=== PATIENT | male | born 1965 | race Caucasian/White ===

== ENCOUNTER 2018-06-12 21:19 | Emergency (ER) | payer SELFPAY ==
[~2018-06-12] VITALS: Ht 193 cm; Wt 90.9 kg
[2018-06-12 23:06] VITALS: BP 129/89
[2018-06-12 23:16] LABS: BASOPHILS % (AUTO) 0.8 % (0.0-2.0); EOSINOPHILS % (AUTO) 2.5 % (1.0-6.0); HEMATOCRIT 40.1 % (41-53); HEMOGLOBIN 13.6 g/dL (13.5-17.5); LYMPHOCYTES # (AUTO) 1.4 K/uL (1.0-4.8); MEAN CORPUSCULAR HEMOGLOBIN 30.3 pg (26.0-34.0); MEAN CORPUSCULAR HGB CONC 33.9 G/dL (31.0-37.0); MEAN CORPUSCULAR VOLUME 90 fL (80-100); MONOCYTES # (AUTO) 0.5 K/uL (0.1-1.0); MONOCYTES % (AUTO) 7.4 % (2.0-9.0); NEUTROPHILS # (AUTO) 5.1 K/uL (1.8-7.7); NEUTROPHILS % (AUTO) 70.3 % (40.0-70.0); PLATELET COUNT (AUTO) 210 K/uL (150-450); RED BLOOD CELL COUNT(AUTO) 4.48 MIL/uL (4.50-5.90); RED CELL DISTRIBUTION WIDTH 14.5 % (11.5-14.5)
[2018-06-12 23:18] LABS: ANION GAP 11 mmol/L (8-16); CALCIUM, TOTAL 9.8 mg/dL (8.8-10.5); CARBON DIOXIDE 27 mmol/L (22-29); CHLORIDE 103 mmol/L (98-107); CREATININE 1.09 mg/dL (0.60-1.30); GLOMERULAR FILTR. RATE CALC > 60 mL/min (>60); GLUCOSE,RANDOM 99 mg/dL (70-110); POTASSIUM 3.7 mmol/L (3.5-5.1); SODIUM SERUM 141 mmol/L (136-145); UREA NITROGEN, BLOOD 14 mg/dL (7-18)
[2018-06-12 23:24] LABS: ALANINE AMINOTRANSFERASE 82 U/L (12-78); ALBUMIN 4.3 g/dL (3.4-5.0); ALKALINE PHOSPHATASE 59 U/L (46-116); ASPARTATE AMINOTRANSFERASE 63 U/L (15-37); TOTAL PROTEIN, SERUM 8.9 g/dL (6.4-8.2)
[2018-06-12 23:47] LABS: AMPHET/METH SCREEN,URINE POSITIVE (NEGATIVE); BARBITURATE SCREEN, URINE NEGATIVE (NEGATIVE); BENZODIAZEPINES SCREEN,URINE POSITIVE (NEGATIVE); CANNABINOID SCREEN,URINE NEGATIVE (NEGATIVE); COCAINE SCREEN,URINE NEGATIVE (NEGATIVE); METHADONE SCREEN, URINE NEGATIVE (NEGATIVE); OPIATE SCREEN,URINE NEGATIVE (NEGATIVE)
[2018-06-12 23:48] LABS: PHENCYCLIDINE SCREEN,URINE NEGATIVE (NEGATIVE)
[2018-06-13] MEDS ORDERED: LORazepam 1 MG TABLET PO ONE (00:15)
== END 2018-06-13 00:42 | disposition home or self-care (01) ==
LOC: EMS 21:20
DX: F15.10 Other stimulant abuse, uncomplicated (principal); R44.0 Auditory hallucinations
CPT/HCPCS: 36415; 80053; 80307; 85025; 99284; G0480

== ENCOUNTER 2018-06-14 20:59 | Inpatient (IN) | payer SELFPAY ==
[~2018-06-14] VITALS: Ht 182.9 cm; Wt 90.3 kg
[2018-06-14] MEDS ORDERED: HALOPERIDOL 5 MG TABLET PO PRN (22:00)
[2018-06-14] MEDS ORDERED: ZOLPIDEM TARTRATE 10 MG TABLET PO PRN (22:00)
[2018-06-14 23:05] VITALS: BP 124/58
[2018-06-15] MEDS: LORazepam 2 MG TABLET PO PRN ×2 (00:27→08:42)
[2018-06-15 00:55] VITALS: BP 109/71
[2018-06-15 07:43] LABS: BASOPHILS % (AUTO) 0.6 % (0.0-2.0); EOSINOPHILS % (AUTO) 5.8 % (1.0-6.0); HEMATOCRIT 38.1 % (41-53); HEMOGLOBIN 12.7 g/dL (13.5-17.5); LYMPHOCYTES # (AUTO) 1.6 K/uL (1.0-4.8); LYMPHOCYTES % (AUTO) 38.1 % (22.0-44.0); MEAN CORPUSCULAR HEMOGLOBIN 30.5 pg (26.0-34.0); MEAN CORPUSCULAR HGB CONC 33.4 G/dL (31.0-37.0); MEAN CORPUSCULAR VOLUME 91 fL (80-100); MONOCYTES # (AUTO) 0.4 K/uL (0.1-1.0); MONOCYTES % (AUTO) 8.5 % (2.0-9.0); PLATELET COUNT (AUTO) 190 K/uL (150-450); RED BLOOD CELL COUNT(AUTO) 4.18 MIL/uL (4.50-5.90); RED CELL DISTRIBUTION WIDTH 14.4 % (11.5-14.5)
[2018-06-15 08:01] VITALS: BP 124/79
[2018-06-15 08:02] LABS: HEMOGLOBIN A1C 5.5 % (4.5-6.2)
[2018-06-15 08:12] LABS: AMPHET/METH SCREEN,URINE POSITIVE (NEGATIVE); BARBITURATE SCREEN, URINE NEGATIVE (NEGATIVE); BENZODIAZEPINES SCREEN,URINE NEGATIVE (NEGATIVE); CANNABINOID SCREEN,URINE NEGATIVE (NEGATIVE); COCAINE SCREEN,URINE NEGATIVE (NEGATIVE); METHADONE SCREEN, URINE NEGATIVE (NEGATIVE); OPIATE SCREEN,URINE NEGATIVE (NEGATIVE)
[2018-06-15 08:15] LABS: PHENCYCLIDINE SCREEN,URINE NEGATIVE (NEGATIVE)
[2018-06-15 08:16] LABS: BILIRUBIN,URINE NEGATIVE (NEGATIVE); GLUCOSE, URINE (UA) NEGATIVE (NEGATIVE); KETONES,URINE NEGATIVE (NEGATIVE); LEUKOCYTE ESTERASE ,URINE NEGATIVE (NEGATIVE); NITRATE,URINE NEGATIVE (NEGATIVE); OCCULT BLOOD,URINE NEGATIVE (NEGATIVE); PROTEIN,URINE NEGATIVE (NEGATIVE)
[2018-06-15 08:16] LABS: ALANINE AMINOTRANSFERASE 57 U/L (12-78); ALBUMIN 3.3 g/dL (3.4-5.0); ALKALINE PHOSPHATASE 46 U/L (46-116); ANION GAP 8 mmol/L (8-16); ASPARTATE AMINOTRANSFERASE 44 U/L (15-37); BILIRUBIN,TOTAL 0.6 mg/dL (0.1-1.0); CARBON DIOXIDE 25 mmol/L (22-29); CHLORIDE 108 mmol/L (98-107); CHOLESTEROL 106 mg/dL (131-200); CREATININE 0.83 mg/dL (0.60-1.30); FREE T4 (FREE THYROXINE) 1.17 ng/dL (0.76-1.46); GLOMERULAR FILTR. RATE CALC > 60 mL/min (>60); GLUCOSE,RANDOM 100 mg/dL (70-110); HDL CHOLESTEROL 35 mg/dL (40-60); LDL CHOL (CALC.) 64 mg/dL (0-130); POTASSIUM 3.8 mmol/L (3.5-5.1); SODIUM SERUM 141 mmol/L (136-145); THYROID STIMULATING HORMONE 1.34 uIU/mL (0.36-3.74); TOTAL PROTEIN, SERUM 7.1 g/dL (6.4-8.2); TRIGLYCERIDES 37 mg/dL (15-150); UREA NITROGEN, BLOOD 14 mg/dL (7-18)
[2018-06-15 08:35] LABS: APPEARANCE,URINE CLEAR (CLEAR)
[2018-06-15] MEDS: OLANZapine 5 MG TABLET PO SCH ×2 (10:57→16:54)
[2018-06-15 16:00] VITALS: BP 115/66
[2018-06-16 06:14] VITALS: BP 121/73
[2018-06-16 08:24] VITALS: BP 128/68
[2018-06-16] MEDS: OLANZapine 5 MG TABLET PO SCH ×2 (08:33→16:17)
[2018-06-16 17:20] VITALS: BP 113/71
[2018-06-17 06:26] VITALS: BP 110/68
[2018-06-17 08:25] VITALS: BP 109/60
[2018-06-17] MEDS: OLANZapine 5 MG TABLET PO SCH ×2 (08:30→16:54)
[2018-06-17 16:37] VITALS: BP 100/70
[2018-06-18 06:28] VITALS: BP 114/78
[2018-06-18 08:24] VITALS: BP 94/70
[2018-06-18] MEDS: OLANZapine 5 MG TABLET PO SCH (08:53)
[2018-06-18] MEDS ORDERED: OLAN5TAB2 PO (12:10)
== END 2018-06-18 12:48 | disposition home or self-care (01) | DRG 885 ==
LOC: B3A 22:00 → EDSTATUS 22:14
PROVIDERS: ADMIT Psychiatry & Neurology Psychiatry; ATTEND Psychiatry & Neurology Psychiatry
DX: F20.0 Paranoid schizophrenia (principal); R45.851 Suicidal ideations; F41.9 Anxiety disorder, unspecified; Z59.0 Homelessness; Z91.14 Patient's other noncompliance with medication regimen; B19.20 Unspecified viral hepatitis C without hepatic coma; D64.9 Anemia, unspecified; F19.10 Other psychoactive substance abuse, uncomplicated
CPT/HCPCS: 83036; 84439; 84443